=== PATIENT | female | born 1970 | race African-American/Black ===

== ENCOUNTER 2024-03-30 16:26 | Emergency (ER) | payer SELFPAY ==
[2024-03-30 16:28] VITALS: BP 141/65
--- NOTE | 2024-03-30 17:06 | ED.GENMED ---
History of Present Illness
General
Chief Complaint: Allergic Reaction
Source: patient
Time Seen by Provider: 03/30/24 17:01
History of Present Illness
History of Present Illness:
53-year-old female with no significant past medical history presenting to the emergency department for evaluation after she had eaten a Warren schneider around 1:30 PM and shortly after eating the schneider started to feel her face gets swollen and itchy
and felt as if she were having trouble breathing. Patient went to urgent care where she was given an intramuscular EpiPen 60 mg of prednisone and patient had already taken 75 total milligrams of Benadryl. Patient was sent to the ER to be further
evaluated and monitored. She notes symptoms seem to be mostly resolved at this time. She notes that she has eaten cherries in the past without any issues. No other known food allergies.
Past History
Past History
ED Past Medical History: Hypercholesterolemia
ED Past Surgical History: Gynecological and Tonsilectomy
Social History
Tobacco: Non-smoker
Alcohol: Occasional
Drug: None
Personal: Other (Fianc�)
Living: with family
Phy Exam
Physical Exam
Physical Exam:
GENERAL: Alert , in no apparent distress
EYE: conjunctiva clear
NECK: Supple,
ENT: o/p clr, mmm. No angioedema, stridor or trismus
CARDIAC: Regular rate and rhythm
LUNGS: Clear breath sounds bilaterally, no acute respiratory distress, no wheezes/rales/rhonchi
NEUROLOGICAL: Alert and oriented
SKIN: Warm and dry, skin intact.
MUSCULOSKELETAL: well perfused.
PSYCH: Normal and appropriate interaction.
Scores
Heart Failure Risk
Heart Failure Risk Score: Not Applicable
Heart Score for Chest Pain Patients
STEMI patient?: Not applicable
Withdrawal Assessment of Alcohol
Withdrawal Assessment Completed?: Not applicable
Course
Orders/Labs/Results
Orders:
Orders
03/30/24 17:05
Famotidine [Pepcid] 40 mg PO NOW STA
Vital Signs
Initial and Last Documented VS:
Initial Vital Signs
Temp Pulse Resp BP Pulse Ox
98.3 F 80 20 141/65 98
03/30/24 16:28 03/30/24 16:28 03/30/24 16:28 03/30/24 16:28 03/30/24 16:28
Last Documented Vital Signs
Temp Pulse Resp BP Pulse Ox
98.3 F 80 20 141/65 98
03/30/24 16:28 03/30/24 16:28 03/30/24 16:28 03/30/24 16:28 03/30/24 16:28
MDM/Problems Addressed
MDM/Problems Addressed:
Patient presenting emergency department for evaluation of what appears to be a potential anaphylactic food allergy. She was given epinephrine, Benadryl, prednisone with relief of symptoms and is currently feeling asymptomatic. Patient counseled
that she should only take proximately 50 mg of Benadryl every 4-6 hours as needed as she took 75 mg of Benadryl prior to arrival to the ER. Will add on additional Pepcid for continued antihistamine effect. Will observe in the ER for any further
evidence for anaphylaxis or allergic reaction. Anticipate discharge home as long as patient remains stable.
*Pulse Oximetry
Patient hypoxic: no
*Critical Care Note
Total Time (30-74mins, 75-104mins- exclusive of procedures): Not Applicable
Patient Management
Escalation/DeEscalation of care consider admission/obs:
Patient remains well-appearing without signs of anaphylaxis or systemic allergic reaction. She would like to be discharged home. Prescription for prednisone and EpiPen sent to pharmacy. Patient is aware of return precautions. Advised avoidance
of cherries or schneider flavoring/additives for the time being. Stable for discharge home and aware of return precautions.
ED Attending Note
-
Portions of this chart may have been created with voice recognition software.� Occasional wrong word or��sound alike� substitutions may have occurred due to the inherent limitations of voice recognition software.
Discharge Plan
Departure
Patient Disposition: Home (Routine Discharge)
Date of Disposition: 03/30/24
Time of Disposition: 18:01
Patient with high blood pressure during this ER visit?: Yes
Discharge Problem:
Allergic reaction to food
Instructions: Allergic Reaction ED
Prescriptions:
New
epinephrine [EpiPen] 0.3 mg/0.3 mL auto-injector
0.3 mg IM .STAT PRN (Reason: anaphylaxis) Qty: 1 0RF
prednisone 20 mg tablet
40 mg PO DAILY 3 Days Qty: 6 0RF
Referrals:
Thomas Perez, DO [Family Provider] -
Interventions
Interventions:
*Risk Screen - Suicide Last Done: 03/30/24 16:28
*General Assessment Last Done: 03/30/24 16:28
*Neglect/Abuse Screening Last Done: 03/30/24 16:28
ED- Pulmonary Assessment Last Done: 03/30/24 17:33
ED-Skin Assessment Last Done: 03/30/24 17:33
Discharge Date and Time
Print Language: ARABIC
[2024-03-30] MEDS: PEPCID 40 MG PO (17:26)
== END 2024-03-30 18:18 | disposition home or self-care (01) ==
LOC: EMR 16:26
PROVIDERS: EMERGENCY PHYSICIAN Emergency Medicine; FAMILY PHYSICIAN Family Medicine
DX: T78.1XXA Other adverse food reactions, not elsewhere classified, initial encounter (principal); R22.0 Localized swelling, mass and lump, head; T78.40XA Allergy, unspecified, initial encounter; X58.XXXA Exposure to other specified factors, initial encounter; E78.00 Pure hypercholesterolemia, unspecified; R03.0 Elevated blood-pressure reading, without diagnosis of hypertension; Z88.0 Allergy status to penicillin
CPT/HCPCS: 99283